=== PATIENT | male | born 1960 | race Caucasian/White ===

== ENCOUNTER 2022-10-03 17:33 | Emergency (ER) | payer MEDICAID, SELFPAY ==
[2022-10-03] VITALS (12 sets, daily range): BP systolic 136–212; BP diastolic 79–129; PULSE 70–85; RESP 14–20; TEMP 36.5–36.9; O2SAT 96–100; BMI 24.4; BMI 25.0
--- NOTE | 2022-10-03 17:48 | XRR_ITS ---
PROCEDURE INFORMATION: Exam: XR Chest Exam date and time: 10/03/2022 5:58 PM Age: 62 years old Clinical indication: Other: RT sided weakness; Additional info: HTN TECHNIQUE: Imaging protocol: Radiologic exam of the chest. Views: 1 view. COMPARISON: No relevant prior studies available. FINDINGS: Lungs: Lungs are clear bilaterally. Pleural spaces: No pleural effusion. No pneumothorax. Heart/Mediastinum: The cardiac silhouette is mildly enlarged. Mediastinal contours are unremarkable. Bones/joints: Unremarkable for age. XR/XR chest 1V portable [id number] IMPRESSION: 1. No acute cardiopulmonary process. 2. Incidental/nonacute findings are listed in the report.
[2022-10-03 18:05] LABS: Glucose Point of Care 231 mg/dL (70-110)
--- NOTE | 2022-10-03 18:10 | ECG_ITS ---
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 Measurements Intervals [place] Rate: 68 P: 63 ME: 144 QRS: 19 QRSD: 93 T: 38 QT: 386 QTc: 411 Interpretive Statements SINUS RHYTHM No previous ECG available for comparison Electronically Signed On 10-04-2022 1:44:24 CDT by Flaquito Ledesma M.D. [id number]
[2022-10-03 18:11] LABS: Basophils % 0.4 %; Eosinophils # 0.1 10^3/uL (0.0-0.8); Eosinophils % 1.1 %; Hematocrit 43.2 % (42.0-52.0); Hemoglobin 14.2 g/dL (11.7-16.6); Lymphocytes # 1.2 10^3/uL (0.8-4.8); Lymphocytes % 14.8 %; Mean Corpuscular HGB Conc 32.9 g/dL (30.0-36.0); Mean Corpuscular Hemoglobin 30.2 pg (28.0-34.0); Mean Corpuscular Volume 91.9 fl (80-94); Mean Platelet Volume 11.3 fL (7.4-10.4); Monocytes # 0.7 10^3/uL (0.2-0.9); Monocytes % 8.9 %; Neutrophils # 5.81 10^3/uL (1.8-7.7); Neutrophils % 74.3 %; Nucleated Red Blood Cells % 0 %; Platelet Count 228 10^3/cmm (130-400); Red Cell Distribution Width 13.7 % (12.1-15.1); White Blood Count 7.8 10^3/uL (4.0-10.0)
--- NOTE | 2022-10-03 18:16 | PC.NURSE ---
Pt presented with stroke like symptoms NIHSS of 9, pt has deficits from a previous stroke that has pt baseline NIHSS at 8.
--- NOTE | 2022-10-03 18:17 | CTR_ITS ---
PROCEDURE INFORMATION: Exam: CT Head Without Contrast Exam date and time: 10/03/2022 6:16 PM Age: 62 years old Clinical indication: Stroke-like symptoms; Altered mental status/memory loss; Additional info: RT sided weakness TECHNIQUE: Imaging protocol: Computed tomography of the head without contrast. Sagittal and coronal reformatted images were created and reviewed. Radiation optimization: All CT scans at this facility use at least one of these dose optimization techniques: automated exposure control; mA and/or kV adjustment per patient size (includes targeted exams where dose is matched to clinical indication); or iterative reconstruction. Other technique: STROKE PROTOCOL was implemented. REPORTING DATA: Count of CT and Cardiac NM exams in prior 12 months: This patient has received 0 known CTs and 0 known cardiac nuclear medicine studies in the 12 months prior to the current study. COMPARISON: No relevant prior studies available. RADIATION DOSE METRICS: Total DLP (mGy-cm): 1173.99 FINDINGS: Brain: No acute intracranial hemorrhage. No acute infarct. No intra-axial or extra-axial masses. Simon-white matter differentiation is preserved. No cerebral edema. No extra-axial fluid collections. No midline shift. No evidence for Chiari 1 malformation. Incidental note of a leobardo cisterna magna. Cerebral ventricles: No hydrocephalus. Paranasal sinuses: Large mucus retention cyst in the left frontal sinus. Other visualized paranasal sinuses are clear. Mastoid air cells: Visualized mastoid air cells are clear. Auditory system: Soft tissue density in the bilateral external auditory canals, presumably representing cerumen. Orbital cavities: No acute abnormality in the visualized orbits. Bones/joints: No acute fracture. Soft tissues: The extracranial soft tissues are unremarkable. Vasculature: Mild atherosclerotic changes in the visualized arteries. CT/CT head thrombolytic [id number] IMPRESSION: 1. No acute abnormality of the brain. 2. Incidental/nonacute findings are listed in the report. ASSESSMENT: ASPECTS ([place] Stroke Program Early CT Score) Score is 10.
[2022-10-03 18:29] LABS: Alanine Aminotransferase 9 U/L (0-41); Albumin Level 4.2 g/dL (3.5-5.2); Alkaline Phosphatase 68 U/L (40-130); Anion Gap 14.1 (5-19); Aspartate Amino Transferase 7 U/L (0-40); Blood Urea Nitrogen 15 mg/dL (8-23); Calcium 8.4 mg/dL (8.5-10.5); Carbon Dioxide 29 mmol/L (22-29); Chloride 106 mmol/L (98-107); Globulin 2.6 g/dL (1.3-4.6); Glomerular Filtration Rate 136.1 mL/min (90-130); Glucose 198 mg/dL (65-115); Osmolality Calculated 308 mOsm/kg (285-295); Potassium 3.1 mmol/L (3.5-5.1); Sodium 146 mmol/L (136-145); Total Bilirubin 0.3 mg/dL (0.15-1.2); Total Protein 6.8 g/dL (6.6-8.7)
[2022-10-03] MEDS: hyDRALAzine 20 mg/mL INJ 1 mL 10 MG IVP (18:29)
[2022-10-03 18:34] LABS: INR 1.26 (0.8-1.2)
--- NOTE | 2022-10-03 19:38 | ED_ITS ---
HPI - Neuro Symptoms/Deficit General: Chief Complaint: Neuro Symptoms/Deficit Stated Complaint: HYPERTENSIVE/ HYPERGLYCEMIA/ PREVIOUS STROKE Time Seen by Provider: 10/03/22 17:40 Source: patient and EMS Mode of arrival: EMS Limitations: no limitations History of Present Illness: 62-year-old male who [facility] with complaint of hypertension he had recently been seen at [facility] 5 weeks ago for a stroke he has [facility]. He states that he is gaining function back to his right side the stroke and affect his right side he had been walking states stated. Some weakness in his right leg he has been having some numbness to his extremities well he states his symptoms have improved but they are concerned that he has been hypertensive. He denies any chest pain he had a mild headache. Associated symptoms: Deny chest pain, headache(s), nausea or vomiting Review of Systems Const: Denies: fever(s), chills, body aches or change in appetite Eyes: Denies: blurry vision ENMT: Denies: throat pain or dental pain Card: Denies: chest pain Resp: Denies: dyspnea GI: Denies: abdominal pain, nausea, vomiting or diarrhea Musc: Denies: neck pain or back pain Skin/Breast: Denies: rash Neuro: Reports: numbness in extremities and weakness in extremities; Denies: headache(s) Psych: Denies: depression Fidel/Lymph: Denies: easy bruising All/Imm: Denies: urticaria PFS ED PFSH: Medical History (Updated 10/03/22 @ 20:23 by Eric Negrete MD) CVA (cerebral vascular accident) Social History Smoking and tobacco status: never smoked Alcohol intake: never Physical Exam Const: COMMON NORMALS: no acute distress, patient oriented x3 and healthy appearing HENMT: COMMON NORMALS: normocephalic and atraumatic HEAD & SCALP: normocephalic and atraumatic Eye: COMMON NORMALS: Equal, round and reactive pupils present and EOMs intact bilaterally PUPIL: Yes Equal, round and reactive pupils present Neck/C-Spine: COMMON NORMALS: full ROM and supple Chest: COMMONS NORMALS: normal inspection of the chest and normal palpation of entire chest wall Resp: COMMON NORMALS: normal respiratory effort, No retractions, No use of accessory muscles and clear to auscultation bilaterally AUSCULTATION: clear to auscultation bilaterally Cardio: COMMON NORMALS: regular rate, regular rhythm and No murmurs present (Cardio) RATE: regular rate RHYTHM: regular rhythm GI: COMMON NORMALS: Normal to inspection, nondistended, normoactive bowel sounds present, Soft to palpation, non-tender and no masses PALPATION: Yes Soft to palpation Extremity: COMMON NORMALS: normal to inspection and full ROM Neuro: COMMON NORMALS: patient oriented x3 and moves all extremities OTHER: Slight decrease sensation to the right leg some mild weakness right leg he states has been chronic since her stroke 5 weeks ago Psych: COMMON NORMALS: mental status grossly normal, Normal thought process present and cooperative THOUGHT PROCESS: Normal thought process present Skin: COMMON NORMALS: no rashes or lesions noted and no wounds GENERAL SKIN EXAM: no rashes or lesions noted Course Vital Signs: Vital signs: Vital Signs Temperature 97.7 F 10/03/22 17:59 Pulse Rate 81 10/03/22 18:15 Respiratory Rate 20 H 10/03/22 18:15 Blood Pressure 212/129 10/03/22 18:15 Pulse Oximetry 96 10/03/22 18:15 Oxygen Delivery Me thod Room Air 10/03/22 17:59 MDM - Neuro Symptoms/Deficit Medical Decision Making Patient presented here with some right-sided weakness and numbness along with hypertension he had a previous stroke just 5 weeks ago he is on Plavix and statin. His symptoms here have resolved he is able to move his extremities he is able to walk he still has some slight numbness but has residual from his previous stroke no signs of new stroke patient was evaluated by neurology as w ell as hypertension has improved I feel he is stable for discharge back to the [facility] he is return if worsening. Medical Records I reviewed the patient's medical records. Lab Data I reviewed the patient's lab results. 10/03/22 18:02 10/03/22 18:02 Radiology Impressions Chest X-Ray 10/03/22 17:48 IMPRESSION: 1. No acute cardiopulmonary process. 2. Incidental/nonacute findings are listed in the report. Head CT 10/03/22 18:17 IMPRESSION: 1. No acute abnormality of the brain. 2. Incidental/nonacute findings are listed in the report. ASSESSMENT: ASPECTS ([place] Stroke Program Early CT Score) Score is 10. Laboratory Results WBC 7.8 10^3/uL (4.0-10.0) 10/03/22 18: RBC 4.70 10^6/uL (4.1-5.3) 10/03/22 18:02 Hgb 14.2 g/dL (11.7-16.6) 10/03/22 18: Hct 43.2 % (42.0-52.0) 10/03/22 18: MCV 91.9 fl (80-94) 10/03/22 18: MCH 30.2 pg (28.0-34.0) 10/03/22 18: MCHC 32.9 g/dL (30.0-36.0) 10/03/22 18: RDW 13.7 % (12.1-15.1) 10/03/22 18: Plt Count 228 10^3/cmm (130-400) 10/03/22 18: MPV 11.3 fL (7.4-10.4) H 10/03/22 18: Neut % (Auto) 74.3 % 10/03/22 18: Lymph % (Auto) 14.8 % 10/03/22 18: Moore % (Auto) 8.9 % 10/03/22 18: Eos % (Auto) 1.1 % 10/03/22 18: Baso % (Auto) 0.4 % 10/03/22 18: Neut # (Auto) 5.81 10^3/uL (1.8-7.7) 10/03/22 18: Lymph # (Auto) 1.2 10^3/uL (0.8-4.8) 10/03/22 18:02 Moore # (Auto) 0.7 10^3/uL (0.2-0.9) 10/03/22 18: Eos # (Auto) 0.1 10^3/uL (0.0-0.8) 10/03/22 18: Baso # (Auto) 0.0 10^3/uL (0.0-0.1) 10/03/22 18: Nucleated RBC % (auto) 0 % 10/03/22 18:02 Nucleated RBCs # 0.0 /100WBC 10/03/22 18:02 PT 16.30 SECONDS (12.1-14.9) H 10/03/22 18:02 INR 1.26 (0.8-1.2) H 10/03/22 18:02 Sodium 146 mmol/L (136-145) H 10/03/22 18:02 Potassium 3.1 mmol/L (3.5-5.1) L 10/03/22 18:02 Chloride 106 mmol/L (98-107) 10/03/22 18:02 Carbon Dioxide 29 mmol/L (22-29) 10/03/22 18:02 Anion Gap 14.1 (5-19) 10/03/22 18:02 BUN 15 mg/dL (8-23) 10/03/22 18:02 Creatinine 0.6 mg/dL (0.7-1.2) L 10/03/22 18:02 GFR Calculation 136.1 mL/min (90-130) H 10/03/22 18:02 Glucose 198 mg/dL (65-115) H 10/03/22 18:02 POC Glucose 231 mg/dL (70-110) H 10/03/22 18:01 Calculated Osmolality 308 mOsm/kg (285-295) H 10/03/22 18:02 Calcium 8.4 mg/dL (8.5-10.5) L 10/03/22 18:02 Total Bilirubin 0.3 mg/dL (0.15-1.2) 10/03/22 18:02 AST 7 U/L (0-40) 10/03/22 18:02 ALT 9 U/L (0-41) 10/03/22 18:02 Alkaline Phosphatase 68 U/L (40-130) 10/03/22 18:02 Total Protein 6.8 g/dL (6.6-8.7) 10/03/22 18: Albumin 4.2 g/dL (3.5-5.2) 10/03/22 18:02 Globulin 2.6 g/dL (1.3-4.6) 10/03/22 18:02 Discharge Plan Discharge Patient Disposition: Home Clinical Impression: Right sided weakness, Hypertension Condition: Stable Prescriptions: No Action metformin 500 mg tablet 500 mg PO BID lisinopril 10 mg tablet 10 mg PO BID sulfamethoxazole-trimethoprim [Bactrim DS] 800-160 mg tablet 1 tab PO BID 7 Days Qty: 14 0RF Discharge Orders: Discharge ED (Routine); Ordered 10/03/22 Ordered By: Eric Negrete Discharge Diet: Advance as tolerated Discharge Activity: Resume usual activity Patient Instructions: Weakness (ED) Coding Level of Care Code ED [employer] for Gloria Bobo
--- NOTE | 2022-10-03 20:00 | PM.CONSULT ---
Providers/Reason For Consult Consulting Physician/Specialty*: Wade Thurston MD neurology and epilepsy Reason for Consult*: Code stroke History of Present Illness History of Present Illness Jae Flores is a 62 year old male with a history of left cerebral infarction approximately 5 to 6 weeks prior to this emergency room visit at [facility]. The patient was treated at [facility] and [facility]. According to the patient, he has been experiencing constant numbness involving the bilateral upper and lower extremities since the stroke that occurred 5 to 6 weeks ago. According to the patient, the night of 10/02/2022 he experienced increasing weakness in the right arm and right leg associated with increasing right-sided numbness and slurred speech. The patient informed another healthcare professional working in the emergency room caring for the patient that the symptoms began earlier on the morning of 10/03/2022. Then he told another nurse that the symptoms began 1 hour prior to presenting to the emergency room. Patient blood pressure readings on 2 occasions were 179/98 and then 212/129. The patient's elevated blood pressure was being addressed in the emergency room. Patient is located in bed #3 in the emergency room. In view of the patient's stroke that occurred 5 to 6 weeks prior to this emergency room visit, he was not a candidate for tPA. Currently the patient is alert and in no apparent distress. He denies pain but complains of numbness in both arms and both legs which is chronic since the stroke that occurred 5 to 6 weeks prior to this clinic visit. Past medical history: Left cerebral infarction with residual right-sided weakness and bilateral upper and lower extremity numbness 5 to 6 weeks prior to this emergency room evaluation Hypertension Drug allergies: Aspirin which resulted in nausea Current outpatient medications: Plavix 75 mg p.o. every morning with food for stroke prevention Lipitor 40 mg p.o. q. evening Family history: Unknown Habits: Unknown Review of Systems General: Reports: 10 or more systems reviewed and unremarkable except in HPI and below Musc: Reports: muscle weakness Neuro: Reports: numbness in extremities, weakness in extremities and Slurred speech present Medications/Allergies Home Medications Medication Instructions Recorded Confirmed Last Taken Type lisinopril 10 mg tablet 10 mg PO BID 12/28/19 12/28/19 Unknown History metformin 500 mg tablet 500 mg PO BID 12/28/19 12/28/19 Unknown History sulfamethoxazole 800 1 tab PO BID 7 days #14 tabs 12/28/19 12/28/19 Unknown Rx mg-trimethoprim 160 mg tablet (Bactrim DS) Allergies Allergy/AdvReac Type Severity Reaction Status Date / Time aspirin Allergy NAUSEA Verified 12/28/19 14:10 PFSH Acute PFSH: Social History (Updated 12/28/19 @ 14:12 by Vicky Rivera LPN) Smoking and tobacco status: never smoked Alcohol intake: never Vitals/I&O/Wt Last Vital Signs Temp 97.7 F 10/03/22 17:59 Pulse 81 10/03/22 18:15 Resp 20 H 10/03/22 18:15 BP 212/129 10/03/22 18:15 Pulse Ox 96 10/03/22 18:15 O2 Del Method Room Air 10/03/22 17:59 Weight last 48 hrs Weight 185 lb Weight 180 lb Physical Exam Narrative: The patient is currently alert and oriented x3 speech is mildly dysarthric. His speech is understandable. He is able to follow commands. Head atraumatic. Neck supple. Cranial nerves II through XII grossly intact. I did not observe any obvious facial weakness. Motor examination revealed some weakness in the right upper extremity. He also reported weakness in the right lower extremity. The patient was able to lift the right arm and right leg against gravity. He also reported numbness in his bilateral upper and lower extremity since the stroke that occurred 5 to 6 weeks prior to this ER evaluation. Deep tendon reflexes grossly symmetrical at 2+ plantar responses flexor bilaterally. There was no clonus. Throat clear lungs clear heart regular rhythm and rate extremities were negative for clubbing or cyanosis Data 10/03/22 18:02 10/03/22 18:02 A&P Assessment and plan (1) TIA (transient ischemic attack): (2) Right sided weakness: (3) Hypertension: Plan 1. 62-year-old male who experienced a left cerebral infarction with right-sided weakness 5 to 6 weeks prior to this ER evaluation patient was treated at [facility]. He is currently on Plavix. Patient presented to the emergency room reporting increasing weakness on the right side of his body associated with slurred speech. The patient informed the ER physician the symptoms started the night 10/02/2022, then he told a nurse caring for the patient that the symptoms began the morning of 10/03/2022 and then he told another nurse that the symptoms began 1 hour prior to him presenting to the emergency room. Since the patient experienced a stroke 5 to 6 weeks prior to this ER evaluation, he is not a candidate for tPA. In the emergency room the patient reported that his symptoms resolved. Since the patient is also reports an allergy to aspirin, he will be continued on Plavix 75 mg p.o. every morning with Lipitor 40 mg p.o. q. evening. 2. Hypertension Plan: 1. Agree with discharge planning [facility] facility on Plavix 75 mg p.o. every morning and Lipitor 40 mg p.o. daily 2. Consider Brilinta if the patient experiences any further TIA episodes or strokes 3. Have the patient follow-up with his neurologist. Coding Level of Care Code 85767 Diagnoses TIA (transient ischemic attack) G45.9 Right sided weakness R53.1 Hypertension I10
--- NOTE | 2022-10-06 13:02 | DCPLANNER ---
customer manager called patient due to no primary care physician - no answer at this time
== END 2022-10-03 21:46 | disposition home or self-care (01) ==
PROVIDERS: Emergency Provider Emergency Medicine
DX: I10 Essential (primary) hypertension (principal); R53.1 Weakness; Z86.73 Personal history of transient ischemic attack (TIA), and cerebral infarction without residual deficits
CPT/HCPCS: 36416; 70450; 71045; 80053; 82962; 85025; 85610; 93005; 96374; 99285; J0360